=== PATIENT | male | born 1965 | race African-American/Black ===

== ENCOUNTER 2020-01-31 20:01 | Inpatient (IN) | payer BC, OTHER ==
[~2020-01-31 20:01] MED LIST: Iopamidol-370 76% 500 ML 1 ML ONE
--- NOTE | 2020-01-31 20:31 | RAD ---
Exam: Chest one view HISTORY:Dyspnea. COVID positive patient. Difficulty breathing. Comparison: None FINDINGS: Cardiac silhouette: Normal Aorta: Unremarkable Pulmonary vessels: Normal Costophrenic angles: Clear LUNGS: Scattered interstitial and alveolar opacities. Pneumothorax: None Osseous abnormalities: None IMPRESSION: Multi lobar COVID pneumonia.
[2020-01-31 21:07] LABS: #Lymphocytes 0.6 thou/uL (1.20-3.40); #Monocytes 0.6 thou/uL (0.11-0.59); #Neutrophils 5.9 thou/uL (1.40-6.50); %Basophils 0.3 % (0.0-1.0); %Eosinophils 0.5 % (0.0-10.0); %Lymphocytes 8.5 % (21.0-51.0); %Monocytes 7.8 % (0.0-10.0); %Neutrophils 82.9 % (42.0-75.0); Hemoglobin 14.4 g/dL (14.0-18.0); Mean Corpuscular HGB CONC 32.2 g/dL (32.0-36.0); Mean Corpuscular Hemoglobin 29.6 pg (27.0-31.0); Mean Corpuscular Volume 92.1 fL (78.0-98.0); Mean Platelet Volume 8.5 fL (7.4-10.4); Platelet Count 247 thou/uL (130-400); RBC Distribution Width 12.6 % (11.5-14.5); Red Blood Cell (RBC) Count 4.87 mill/uL (4.70-6.10); White Blood Cell (WBC) Count 7.1 thou/uL (4.8-10.8)
[2020-01-31] MEDS ORDERED: Acetaminophen 500 MG TAB ONE (21:17)
[2020-01-31] MEDS ORDERED: Dexamethasone 10 MG/ML VIAL ONE (21:17)
[2020-01-31 21:25] LABS: Chloride 103 mmol/L (98-107); Potassium 4.2 mmol/L (3.5-5.1); Sodium 138 mmol/L (136-145)
[2020-01-31 21:26] LABS: ALT (SGPT) 28 U/L (8-55); AST (SGOT) 38 U/L (5-34); Albumin 3.5 g/dL (3.5-5.0); Alkaline Phosphatase 68 U/L (40-110); Anion Gap 14 mmol/L (10-20); BUN (Urea Nitrogen) 17 mg/dL (8.4-25.7); Bilirubin, Total 0.5 mg/dL (0.2-1.2); CK (CPK) 458 U/L (30-200); Calc. Creatinine Clearance 0 mL/min (70-130); Calcium 7.9 mg/dL (7.8-10.44); Carbon Dioxide 25 mmol/L (22-29); Globulin 3.4 g/dL (2.4-3.5); Glucose 110 mg/dL (70-105); Protein, Total 6.9 g/dL (6.0-8.3)
--- NOTE | 2020-01-31 22:11 | CT ---
Exam: CT angiogram of the chest HISTORY: COVID pneumonia. Shortness of breath. Evaluate for pulmonary artery embolism. COMPARISON: None TECHNIQUE: CT angiogram of the chest is performed in the axial plane. Three-dimensional reformatted i mages are submitted for interpretation FINDINGS: Mediastinum: There are enlarged mediastinal lymph nodes. [facility] right paratracheal lymph node measures 1.5 x 1.8 cm HEART: Normal size. No significant pericardial fluid. Aorta: No aneurysm or dissection Upper solid abdominal viscera: No abnormality enhancement. Trachea and central bronchi: Patent Pleural spaces: No effusion Lung parenchyma: Multifocal peripheral groundglass opacities. Pneumothorax: None Osseous structures: No lytic or blastic lesions Pulmonary arteries: Adequate contrast opacification pulmonary arterial system to the level of segment al arteries. No filling defect to suggest pulmonary embolism IMPRESSION: 1. No evidence of pulmonary artery embolism to the level of the segmental arteries 2. Multifocal peripheral groundglass opacities. Distribution is consistent with patient's positive CO VID status post. There is evidence for multi lobar COVID pneumonia. 3. Probable reactive mediastinal lymphadenopathy.
[2020-01-31] MEDS ORDERED: cefTRIAXone\\ROCEPHIN 1 GM VIAL ONE (22:49)
[2020-01-31] MEDS ORDERED: Aspirin Chewable 81 MG TAB ONE (22:49)
[2020-01-31] MEDS ORDERED: Enoxaparin Sodium 80 MG/0.8 ML SYRINGE ONE (23:05)
[2020-02-01] MEDS ORDERED: Azithromycin 500 MG VIAL ONE ×2 (00:49→10:32)
[2020-02-01] MEDS ORDERED: PROVENTIL INHALER 6.7 G (200 INHALATIONS) INH PRN (06:57)
[2020-02-01] MEDS ORDERED: hydrALAZINE 20 MG/ML VIAL SLOW IVP PRN (08:08)
[2020-02-01] MEDS ORDERED: Labetalol HCl 100 MG/20 ML VIAL SLOW IVP PRN (08:08)
[2020-02-01] MEDS ORDERED: Dexamethasone 20 MG/5 ML VIAL SLOW IVP SCH (09:00)
--- NOTE | 2020-02-01 09:03 | PDOC.HHP ---
Hospitalist HPI - History of Present Illness History of Present Illness: ADMISSION DATE: 02/01/2020 TIME OF ASSESSMENT: 08 50 PRIMARY CARE PHYSICIAN: Pratik, city call CHIEF COMPLAINT: Shortness of breath HPI: Patient is a 54-year-old male past medical history significant for high blood pressure which he currently does not take medication for and a recent positive Covid test. Patient states that he went to have his blood pressure checked last Friday, 4 days ago, and asked them to do a Covid test although he was not feeling bad. He states it resulted positive and he does not know when he was exposed. He presents today for increasing shortness of breath and worsening cough. He denies chest pain, GI symptoms, swelling. When EMS arrived his O2 saturation was 90% on room air so they placed him on 4 L nasal cannula which brought him to 97%. Patient does endorse subjective fever at home. Upon arrival to the ER patient's temp was 100.9 orally. ED COURSE: Vital Signs: Blood pressure 157/127, pulse 79, respiratory rate 24, temp 98.8, O2 saturation 95% on 2 L In the ER the patient had a CT angio of his chest, chest x-ray, EKG, lab work, medication administration. He was given azithromycin 500 mg IV, Lovenox 1 mg/kg subcu, ceftriaxone 1 g IV, aspirin 324 mg p.o., Decadron 10 mg IV, 1 L normal saline. PAST MEDICAL HISTORY: High blood pressure PAST SURGICAL HISTORY: None SOCIAL HISTORY: Lives at home with his girlfriend. Denies alcohol or drug use. Has history of tobacco use but quit 33 years ago. FAMILY HISTORY: High blood pressure ALLERGIES: No known drug allergies CURRENT MEDICATIONS: No current home medications Hospitalist ROS - Review of Systems Constitutional: reports: fever, weakness Respiratory: reports: cough, shortness of breath, SOB with excertion All other systems reviewed; all pertinent +/- noted in HPI/Subj - Exam General Appearance: NAD, awake alert Eye: PERRL ENT: normocephalic atraumatic Neck: supple Heart: RRR, no murmur, no gallops, no rubs, normal peripheral pulses Respiratory: no wheezes, no rales, rhonchi (light throughout) Respiratory - other findings: diminished bases Gastrointestinal: soft, non-tender, non-distended, normal bowel sounds Extremities: no cyanosis, no edema Neurological: no focal deficits Psychiatric: normal affect, normal behavior, A&O x 3 Hospitalist Results - Labs Result Diagrams: 02/01/20 09:03 02/01/20 09:03 Lab results: WBC 7.1 thou/uL (4.8-10.8) 01/31/20 20:44 Hgb 14.4 g/dL (14.0-18.0) 01/31/20 20:44 Hct 44.8 % (42.0-52.0) 01/31/20 20:44 MCV 92.1 fL (78.0-98.0) 01/31/20 20:44 Plt Count 247 thou/uL (130-400) 01/31/20 20:44 Neutrophils % 82.9 % (42.0-75.0) H 01/31/20 20:44 Sodium 138 mmol/L (136-145) 01/31/20 20:44 Potassium 4.2 mmol/L (3.5-5.1) 01/31/20 20:44 Chloride 103 mmol/L (98-107) 01/31/20 20:44 Carbon Dioxide 25 mmol/L (22-29) 01/31/20 20:44 BUN 17 mg/dL (8.4-25.7) 01/31/20 20:44 Creatinine 1.62 mg/dL (0.7-1.3) H 01/31/20 20:44 Glucose 110 mg/dL (70-105) H 01/31/20 20:44 Calcium 7.9 mg/dL (7.8-10.44) 01/31/20 20:44 Total Bilirubin 0.5 mg/dL (0.2-1.2) 01/31/20 20:44 AST 38 U/L (5-34) H 01/31/20 20:44 ALT 28 U/L (8-55) 01/31/20 20:44 Alkaline Phosphatase 68 U/L (40-110) 01/31/20 20:44 Creatine Kinase 458 U/L (30-200) H 01/31/20 20:44 Troponin I 0.025 ng/mL (< 0.028) 01/31/20 20:44 B-Natriuretic Peptide 18.8 pg/mL (0-100) 01/31/20 20:44 Serum Total Protein 6.9 g/dL (6.0-8.3) 01/31/20 20:44 Albumin 3.5 g/dL (3.5-5.0) 01/31/20 20:44 Laboratory Tests 01/31/20 20:44 D-Dimer 1.53 H - EKG Interpretation EKG: Sinus rhythm 82 bpm - Radiology Interpretation CT scan - chest Status: report reviewed by me Additional Comment: FINDINGS: Mediastinum: There are enlarged mediastinal lymph nodes. 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 No significant pericardial fluid. Aorta: No aneurysm or dissection Upper solid abdominal viscera: No abnormality enhancement. Trachea and central bronchi: Patent Pleural spaces: No effusion Lung parenchyma: Multifocal peripheral groundglass opacities. Pneumothorax: None Osseous structures: No lytic or blastic lesions Pulmonary arteries: Adequate contrast opacification pulmonary arterial system to the level of segmental arteries. No filling defect to suggest pulmonary embolism IMPRESSION: 1. No evidence of pulmonary artery embolism to the level of the segmental arteries 2. Multifocal peripheral groundglass opacities. Distribution is consistent with patients positive COVID status post. There is evidence for multi lobar COVID pneumonia. 3. Probable reactive mediastinal lymphadenopathy. Chest x-ray Status: image reviewed by me, report reviewed by me Additional Comment: FINDINGS: Cardiac silhouette: Normal Aorta: Unremarkable Pulmonary vessels: Normal Costophrenic angles: Clear LUNGS: Scattered interstitial and alveolar opacities. Pneumothorax: None Osseous abnormalities: None IMPRESSION: Multi lobar COVID pneumonia Hospitalist H&P A/P - Plan Plan: COVID-19 pneumonia with hypoxia Continue IV antibiotics and steroids Lovenox 1 mg/kg Antipyretics and analgesics available for fever and body aches Continue O2 to maintain sats above 92%, continue close monitoring Gentle IV fluids Zinc and vitamin C ordered Breathing treatments as needed Antitussives available Hypertension Vital signs every 4 hour As needed antihypertensives available May start low-dose antihypertensive patient blood pressure remains elevated Elevated D-dimer CTA did not show PE Continue Lovenox 1 mg/kg Possibly elevated secondary to Covid, troponin unremarkable ALVARO Gentle rehydration Follow labs in a.m. VTE prophylaxis in place with Lovenox CODE STATUS: Full Surrogate decision-maker is his girlfriend, Pily
[2020-02-01 09:26] LABS: Hemoglobin 15.6 g/dL (14.0-18.0); Mean Corpuscular HGB CONC 32.6 g/dL (32.0-36.0); Mean Corpuscular Hemoglobin 30.3 pg (27.0-31.0); Mean Corpuscular Volume 92.8 fL (78.0-98.0); Mean Platelet Volume 8.3 fL (7.4-10.4); Platelet Count 283 thou/uL (130-400); RBC Distribution Width 12.7 % (11.5-14.5); Red Blood Cell (RBC) Count 5.15 mill/uL (4.70-6.10); White Blood Cell (WBC) Count 7.9 thou/uL (4.8-10.8)
[2020-02-01] MEDS ORDERED: Benzonatate 100 MG CAP ONE (09:27)
[2020-02-01] MEDS ORDERED: Acetaminophen 325 MG TAB ONE (09:27)
[2020-02-01] MEDS ORDERED: cefTRIAXone\\ROCEPHIN 1 GM VIAL ONE (09:27)
[2020-02-01] MEDS ORDERED: hydrALAZINE 20 MG/ML VIAL ONE (09:27)
[2020-02-01] MEDS ORDERED: Dexamethasone 10 MG/ML VIAL ONE (09:27)
[2020-02-01] MEDS ORDERED: Aspirin 325 MG TAB ONE (09:27)
[2020-02-01] MEDS ORDERED: Labetalol HCl 100 MG/20 ML VIAL ONE (09:29)
[2020-02-01 09:42] LABS: Anion Gap 15 mmol/L (10-20); BUN (Urea Nitrogen) 19 mg/dL (8.4-25.7); Calc. Creatinine Clearance 0 mL/min (70-130); Calcium 8.2 mg/dL (7.8-10.44); Carbon Dioxide 26 mmol/L (22-29); Chloride 105 mmol/L (98-107); Glucose 122 mg/dL (70-105); Potassium 5.1 mmol/L (3.5-5.1); Sodium 141 mmol/L (136-145)
[2020-02-01] MEDS: Sodium Chloride 0.9% 1,000 ML IV SCH ×2 (09:49→20:26)
[2020-02-01] MEDS: cefTRIAXone\\ROCEPHIN 1 GM in Sodium Chloride 0.9% 100 ML IVPB SCH (09:54)
[2020-02-01 09:55] LABS: Band 7 % (5-11); Lymphocytes 14 % (21-51); MDiff Complete? YES; Monocytes 1 % (0-10); Neutrophil 71 % (42-75); Platelet Morphology Comment Appears Adequate; RBC Morphology Normal; Reactive Lymphocytes 7 % (0-10)
[2020-02-01] MEDS: Zinc Sulfate 220 MG CAP PO SCH (09:56)
[2020-02-01] MEDS: Ascorbic Acid 500 mg Chewable Tablet PO SCH (09:56)
[2020-02-01] MEDS: Aspirin 325 MG TAB PO SCH (09:57)
[2020-02-01] MEDS: Acetaminophen 325 MG TAB PO PRN ×2 (09:57→17:18)
[2020-02-01] MEDS: Benzonatate 100 MG CAP PO PRN ×2 (09:58→21:50)
[2020-02-01] MEDS: Dexamethasone 4 mg/ml Vial SLOW IVP SCH (10:01)
[2020-02-01] MEDS ORDERED: Enoxaparin Sodium 100 MG/ML SYRINGE ONE (10:15)
[2020-02-01] MEDS ORDERED: Enoxaparin Sodium 80 MG/0.8 ML SYRINGE ONE (10:17)
[2020-02-01] MEDS: Azithromycin 500 MG in Sodium Chloride 0.9% 250 ML 250 ML IVPB SCH (10:38)
[2020-02-01] MEDS: Mometasone 100 MCG/Formoterol 5 MCG 120 PUFF INHALER INH SCH (19:30)
[2020-02-01] MEDS: Enoxaparin Sodium 80 MG/0.8 ML SYRINGE SC SCH (20:26)
[2020-02-02] MEDS: Acetaminophen 325 MG TAB PO PRN ×4 (00:05→20:38)
[2020-02-02] MEDS: Benzonatate 100 MG CAP PO PRN (04:47)
[2020-02-02 05:37] LABS: #Basophils 0.1 thou/uL (0.0-0.2); #Eosinphils 0.1 thou/uL (0.0-0.7); #Lymphocytes 1.4 thou/uL (1.20-3.40); #Monocytes 0.8 thou/uL (0.11-0.59); #Neutrophils 11.9 thou/uL (1.40-6.50); %Basophils 0.4 % (0.0-1.0); %Eosinophils 0.4 % (0.0-10.0); %Monocytes 5.6 % (0.0-10.0); %Neutrophils 83.7 % (42.0-75.0); Hemoglobin 13.8 g/dL (14.0-18.0); Mean Corpuscular HGB CONC 33.3 g/dL (32.0-36.0); Mean Corpuscular Hemoglobin 30.7 pg (27.0-31.0); Mean Corpuscular Volume 92.1 fL (78.0-98.0); Mean Platelet Volume 8.4 fL (7.4-10.4); Platelet Count 310 thou/uL (130-400); RBC Distribution Width 12.8 % (11.5-14.5); Red Blood Cell (RBC) Count 4.51 mill/uL (4.70-6.10); White Blood Cell (WBC) Count 14.3 thou/uL (4.8-10.8)
[2020-02-02 06:41] LABS: Anion Gap 13 mmol/L (10-20); BUN (Urea Nitrogen) 23 mg/dL (8.4-25.7); Calc. Creatinine Clearance 64 mL/min (70-130); Calcium 7.5 mg/dL (7.8-10.44); Carbon Dioxide 23 mmol/L (22-29); Chloride 107 mmol/L (98-107); Glucose 90 mg/dL (70-105); Potassium 4.4 mmol/L (3.5-5.1); Sodium 139 mmol/L (136-145)
[2020-02-02] MEDS: Mometasone 100 MCG/Formoterol 5 MCG 120 PUFF INHALER INH SCH ×2 (06:43→18:08)
[2020-02-02] MEDS: Ascorbic Acid 500 mg Chewable Tablet PO SCH (09:12)
[2020-02-02] MEDS: Zinc Sulfate 220 MG CAP PO SCH (09:12)
[2020-02-02] MEDS: Aspirin 325 MG TAB PO SCH (09:12)
[2020-02-02] MEDS: Azithromycin 500 MG in Sodium Chloride 0.9% 250 ML 250 ML IVPB SCH (09:13)
[2020-02-02] MEDS: Sodium Chloride 0.9% 1,000 ML IV SCH ×2 (09:13→20:40)
[2020-02-02] MEDS: Enoxaparin Sodium 80 MG/0.8 ML SYRINGE SC SCH (09:14)
[2020-02-02] MEDS: Dexamethasone 4 mg/ml Vial SLOW IVP SCH (09:16)
[2020-02-02] MEDS: cefTRIAXone\\ROCEPHIN 1 GM in Sodium Chloride 0.9% 100 ML IVPB SCH (11:03)
--- NOTE | 2020-02-02 15:11 | PDOC.HOSPP ---
- Subjective Encounter Date: 02/02/20 Encounter Time: 14:15 Subjective: Patient is seen for follow-up of COVID-19 today. He appears more tired in bed and has needed an increase in his oxygen support to 4 L. He states he had fevers throughout the night and has started to cough up blood tinged sputum. Patient also endorses diarrhea since he was diagnosed. Patient becoming winded just with conversation. - Objective Vital Signs & Weight: Vital Signs (12 hours) Temp Pulse Resp BP Pulse Ox 02/02/20 11:13 99.3 F 78 16 129/76 93 L 02/02/20 10:24 94 L 02/02/20 09:12 100.3 F H 02/02/20 08:44 100.3 F H 88 16 125/78 94 L 02/02/20 06:00 99.5 F 02/02/20 05:17 99.5 F 02/02/20 05:08 101.7 F H 88 18 151/98 H 92 L Weight Weight 180 lb 12.465 oz Result Diagrams: 02/02/20 05:08 02/02/20 05:08 Hospitalist ROS - Review of Systems Constitutional: reports: weakness Respiratory: reports: cough, hemoptysis All other systems reviewed; all pertinent +/- noted in HPI/Subj - Medication Medications: Active Medications Generic Name Dose Route Start Last Admin Trade Name Freq PRN Reason Stop Dose Admin Acetaminophen 650 mg 02/01/20 08:08 02/02/20 09:12 Acetaminophen 325 Mg Tab PO 650 mg Q4H PRN Administration Headache/Fever/Mild Pain (1-3) Ascorbic Acid 1,000 mg 02/01/20 09:00 02/02/20 09:12 Ascorbic Acid 500 Mg Chewable Tablet PO 1,000 mg DAILY SILVINO Administration Aspirin 325 mg 02/01/20 09:00 02/02/20 09:12 Aspirin 325 Mg Tab PO 325 mg DAILY SILVINO Administration Benzonatate 100 mg 02/01/20 08:08 02/02/20 04:47 Benzonatate 100 Mg Cap PO 100 mg Q6H PRN Administration Cough Dexamethasone 6 mg 02/01/20 09:00 02/02/20 09:16 Dexamethasone 4 Mg/Ml Vial SLOW IVP 6 mg DAILY SILVINO Administration Sodium Chloride 1,000 mls @ 75 mls/hr 02/01/20 08:15 02/02/20 09:13 Normal Saline 0.9% IV 1,000 mls .[id number] SILVINO Administration Azithromycin 500 mg/ Sodium 250 mls @ 250 mls/hr 02/01/20 10:00 02/02/20 09:13 Chloride IVPB 250 mls Q24HR SILVINO Administration Ceftriaxone Sodium 1 gm/ 100 mls @ 200 mls/hr 02/01/20 09:00 02/02/20 11:03 Sodium Chloride IVPB 100 mls Q24HR SILVINO Administration Mometasone Furoate/Formoterol Fumar 1 puff 02/01/20 18:30 02/02/20 06:43 Mometasone 100 Mcg/Formoterol 5 Mcg 120 Puff Inhaler INH 1 puff BID-RT SILVINO Administration Sodium Chloride 10 ml 02/01/20 09:00 02/02/20 09:13 Flush - Normal Saline 10 Ml Syringe IVF 10 ml Q12HR SILVINO Administration Zinc Sulfate 220 mg 02/01/20 09:00 02/02/20 09:12 Zinc Sulfate 220 Mg Cap PO 220 mg DAILY SILVINO Administration - Exam General Appearance: awake alert, ill appearing ENT: normocephalic atraumatic Neck: supple Heart: RRR, no murmur, no gallops, no rubs, normal peripheral pulses Respiratory: no ronchi, tachypneic Respiratory - other findings: SOB with talking Gastrointestinal: non-tender, normal bowel sounds, no palpable masses, distended Extremities: no edema Musculoskeletal: no muscle wasting Psychiatric: normal behavior, A&O x 3 Hosp A/P - Plan COVID-19 pneumonia with hypoxia Continue IV antibiotics and steroids, had elevation of white blood cellspossibly from steroid use Decrease Lovenox due to hemoptysis Antipyretics and analgesics available for fever and body aches Continue O2 to maintain sats above 92%, continue close monitoring Gentle IV fluids Zinc, vitamin D and vitamin C ordered Consider remdesivir Breathing treatments as needed Antitussives available Hypertension Vital signs every 4 hour As needed antihypertensives available May start low-dose antihypertensive if patient blood pressure remains elevated Elevated D-dimer CTA did not show PE Possibly elevated secondary to Covid, troponin unremarkable We will obtain CRP and ferritin levels to trend ALVARO Gentle rehydration Continue to follow labs
[2020-02-02] MEDS ORDERED: REMDESIVIR (EUA) 200 MG in Sodium Chloride 0.9% 250 ML 210 ML IV SCH (16:00)
[2020-02-02] MEDS: Guaifenesin DM 100-10/5 ML UDCUP PO PRN (20:39)
[2020-02-03] MEDS: Acetaminophen 325 MG TAB PO PRN ×2 (04:44→20:30)
[2020-02-03] MEDS: Guaifenesin DM 100-10/5 ML UDCUP PO PRN (05:16)
[2020-02-03] MEDS: Mometasone 100 MCG/Formoterol 5 MCG 120 PUFF INHALER INH SCH ×2 (05:33→19:20)
[2020-02-03 06:21] LABS: Anion Gap 14 mmol/L (10-20); BUN (Urea Nitrogen) 17 mg/dL (8.4-25.7); Calc. Creatinine Clearance 78 mL/min (70-130); Calcium 7.7 mg/dL (7.8-10.44); Carbon Dioxide 22 mmol/L (22-29); Chloride 107 mmol/L (98-107); Glucose 98 mg/dL (70-105); Potassium 4.2 mmol/L (3.5-5.1); Sodium 139 mmol/L (136-145)
[2020-02-03 06:34] LABS: Band 10 % (5-11); Hemoglobin 14.5 g/dL (14.0-18.0); Lymphocytes 10 % (21-51); MDiff Complete? YES; Mean Corpuscular HGB CONC 33.5 g/dL (32.0-36.0); Mean Corpuscular Hemoglobin 31.9 pg (27.0-31.0); Mean Corpuscular Volume 95.2 fL (78.0-98.0); Mean Platelet Volume 8.4 fL (7.4-10.4); Metamyelocyte 2 % (0-0); Monocytes 9 % (0-10); Myelocyte 1 % (0-0); Neutrophil 68 % (42-75); Platelet Count 341 thou/uL (130-400); Platelet Morphology Comment Appears Adequate; RBC Distribution Width 12.9 % (11.5-14.5); Red Blood Cell (RBC) Count 4.55 mill/uL (4.70-6.10)
[2020-02-03] MEDS: Ascorbic Acid 500 mg Chewable Tablet PO SCH (07:55)
[2020-02-03] MEDS: Zinc Sulfate 220 MG CAP PO SCH (07:56)
[2020-02-03] MEDS: Enoxaparin Sodium 40 MG/0.4 ML SYRINGE SC SCH (07:56)
[2020-02-03] MEDS: cefTRIAXone\\ROCEPHIN 1 GM in Sodium Chloride 0.9% 100 ML IVPB SCH (07:57)
[2020-02-03] MEDS: Aspirin 325 MG TAB PO SCH (07:57)
[2020-02-03] MEDS: Dexamethasone 4 mg/ml Vial SLOW IVP SCH (07:58)
[2020-02-03] MEDS ORDERED: Benzonatate 100 MG CAP PO PRN (08:10)
[2020-02-03 08:49] LABS: Lactic Acid 3.8 mmol/L (0.5-2.2)
[2020-02-03 08:54] LABS: CRP (Inflammatory) 13.48 mg/dL (= or < 0.5); Magnesium 2.8 mg/dL (1.6-2.6)
--- NOTE | 2020-02-03 08:57 | PDOC.HOSPP ---
- Subjective Encounter Date: 02/03/20 Encounter Time: 08:55 Subjective: Reports having issues with his breathing last night. He was laying on his side and felt like there was pressure on his lungs. His sats dropped. States he sat up and RN came in and bumped up his O2. He was afraid to lay back down and decided to sleep in the recliner. Continues with hemoptysis. States he has frequent coughing fits. Unable to take a deep breath due to exacerbation of coughing fits. No chest pain. Denies any lightheadedness. Currently he feels he is breathing well. Urine continues to be somewhat dark. Tolerating PO intake. No dysuria/hematuria. - Objective Vital Signs & Weight: Vital Signs (12 hours) Temp Pulse Resp BP Pulse Ox 02/03/20 04:00 98.6 F 86 18 151/87 H 98 02/02/20 23:17 98.3 F 80 20 141/92 H 95 02/02/20 21:00 99.1 F 76 20 130/82 94 L Weight Weight 180 lb 12.465 oz I&O: 02/02/20 02/03/20 02/04/20 06:59 06:59 06:59 Intake Total 4820 Balance 4820 Result Diagrams: 02/03/20 05:38 02/03/20 05:38 Hospitalist ROS - Review of Systems Constitutional: denies: fever, chills, sweats, weakness, malaise, other Respiratory: reports: cough, shortness of breath (episode last night, improved when upright and O2 bumped up.), hemoptysis Cardiovascular: denies: chest pain, palpitations, orthopnea, paroxysmal noc. dyspnea, edema, light headedness, other Gastrointestinal: denies: nausea, vomiting, abdominal pain, diarrhea, constipation, melena, hematochezia, other Genitourinary: denies: dysuria, frequency, incontinence, hematuria, retention, other Musculoskeletal: denies: neck pain, shoulder pain, arm pain, back pain, hand pain, leg pain, foot pain, other Skin: denies: rash, lesions, abdoul, bruising, other Neurological: denies: weakness, numbness, incoordination, change in speech, confusion, seizures, other - Medication Medications: Active Medications Generic Name Dose Route Start Last Admin Trade Name Freq PRN Reason Stop Dose Admin Acetaminophen 650 mg 02/01/20 08:08 02/03/20 04:44 Acetaminophen 325 Mg Tab PO 650 mg Q4H PRN Administration Headache/Fever/Mild Pain (1-3) Ascorbic Acid 1,000 mg 02/01/20 09:00 02/03/20 07:55 Ascorbic Acid 500 Mg Chewable Tablet PO 1,000 mg DAILY SILVINO Administration Aspirin 325 mg 02/01/20 09:00 02/03/20 07:57 Aspirin 325 Mg Tab PO 325 mg DAILY SILVINO Administration Benzonatate 100 mg 02/01/20 08:08 02/02/20 04:47 Benzonatate 100 Mg Cap PO 100 mg Q6H PRN Administration Cough Dexamethasone 6 mg 02/01/20 09:00 02/03/20 07:58 Dexamethasone 4 Mg/Ml Vial SLOW IVP 6 mg DAILY SILVINO Administration Enoxaparin Sodium 40 mg 02/03/20 09:00 02/03/20 07:56 Enoxaparin Sodium 40 Mg/0.4 Ml Syringe SC 40 mg 09 SILVINO Administration Guaifenesin/Dextromethorphan 15 ml 02/01/20 08:08 02/03/20 05:16 Guaifenesin Dm 100-10/5 Ml Udcup PO 15 ml Q4H PRN Administration Cough Azithromycin 500 mg/ Sodium 250 mls @ 250 mls/hr 02/01/20 10:00 02/02/20 09:13 Chloride IVPB 250 mls Q24HR SILVINO Administration Ceftriaxone Sodium 1 gm/ 100 mls @ 200 mls/hr 02/01/20 09:00 02/03/20 07:57 Sodium Chloride IVPB 100 mls Q24HR SILVINO Administration Mometasone Furoate/Formoterol Fumar 1 puff 02/01/20 18:30 02/03/20 05:33 Mometasone 100 Mcg/Formoterol 5 Mcg 120 Puff Inhaler INH 1 puff BID-RT SILVINO Administration Sodium Chloride 10 ml 02/01/20 09:00 02/03/20 07:57 Flush - Normal Saline 10 Ml Syringe IVF 10 ml Q12HR SILVINO Administration Zinc Sulfate 220 mg 02/01/20 09:00 02/03/20 07:56 Zinc Sulfate 220 Mg Cap PO 220 mg DAILY SILVINO Administration - Exam General Appearance: NAD, awake alert Eye: PERRL, anicteric sclera ENT: normocephalic atraumatic, no oropharyngeal lesions Neck: supple, no lymphadenopathy Heart: RRR, no murmur, no gallops, normal peripheral pulses Respiratory: CTAB, no wheezes, no rales, no ronchi, normal chest expansion, no tachypnea Gastrointestinal: soft, non-tender, non-distended, normal bowel sounds, no guarding, no rigidity Extremities: no edema Skin: normal turgor, no lesions, no rashes Neurological: cranial nerve grossly intact, normal sensation to touch, no focal deficits Musculoskeletal: normal tone, normal strength, no muscle wasting Psychiatric: normal affect, normal behavior, A&O x 3 Hosp A/P (1) Cough with hemoptysis Code(s): R04.2 - HEMOPTYSIS Status: Acute Plan: CTA done at admission, negative for PE. Likely due to irritation from constant cough. Will add Tessalon to help control cough (2) Pneumonia due to COVID-19 virus Code(s): U07.1 - COVID-19; J12.89 - OTHER VIRAL PNEUMONIA Status: Acute Plan: Continue antibiotics Continue IV Dexamethasone Check CRP, Ferritin, LDH and lactic acid as well as D-dimer Will check BNP as well Monitor O2 sats Zinc, vitamin D and vitamin C ordered (3) ALVARO (acute kidney injury) Code(s): N17.9 - ACUTE KIDNEY FAILURE, UNSPECIFIED Status: Acute Plan: Continue IV fluids, rate reduced to 50 mLs/hr PO fluid intake encouraged Repeat BMP to assess renal function (4) Hypertension Code(s): I10 - ESSENTIAL (PRIMARY) HYPERTENSION Status: Chronic Plan: Continue anti-hypertensives Monitor BP.
[2020-02-03] MEDS: Azithromycin 500 MG in Sodium Chloride 0.9% 250 ML 250 ML IVPB SCH ×2 (10:57→12:01)
[2020-02-03] MEDS: Cholecalciferol (Vitamin D3) 400 UNITS TAB PO SCH (10:57)
[2020-02-03] MEDS: Sodium Chloride 0.9% 1,000 ML IV SCH ×2 (12:01→20:23)
--- NOTE | 2020-02-03 13:48 | PQF ---
CLINICAL DOCUMENTATION CLARIFICATION FORM: Dear Dr. Heri Chaney Date: 02/03/2020 Please exercise your independent, professional judgment in responding to the clarification form. Clinical indicators are provided on the bottom of this form for your review. Please check appropriate box(es): [ ] Acute Respiratory Failure: [ ] with Hypoxia [ ] with Hypercapnia [ ] Acute On Chronic Respiratory Failure: [ ] with Hypoxia [ ] with Hypercapnia [ X ] Acute Respiratory Failure due to: (etiology) COVID PNEUMONIA [ ] Chronic Respiratory Failure only [ ] with Hypoxia [ ] with Hypercapnia [ ] Hypoxia [ ] Other diagnosis [ ] Unable to determine In addition, please specify: Present on Admission (POA): [ ] Yes [ ] No [ ] Unable to determine For continuity of documentation, please document condition throughout progress notes and discharge summary. Thank You. To be completed by CDI/Coding staff for physician review: CLINICAL INDICATORS - SIGNS / SYMPTOMS / LABS / RESULTS AND LOCATION IN MR [place] positive Friday, Pt c/o SOB, 90% RA > 95% 4L/NC, RESP 28.. Final DX: Johan Justice, Hypoxia (ED report) 01/31 * Presents for increasing SOB and worsening cough, when EMS arrived his O2 was 90% RA so they placed him on 4l/NC ([place]/ H&P) 01/31 * Reports having issues with his breathing last night. He was laying on his side and felt like there was pressure on his lungs. His sats dropped. States he sat up and RN came in and bumped up his O2. ([place]/H&P) 02/02 RISK FACTORS / RESULTS AND LOCATION IN MR Johan Justice Pneumonia, hypoxia ( [place]/ H&P) 02/02 TREATMENTS / RESULTS AND LOCATION IN MR Supplemental oxygen (01/31 present) Acute Respiratory Failure: ABG pH < 7.35 or > 7.45; Decreased oxygen saturation (<90% room air or < 95% on oxygen); PCO2 > 50 mm Hg; PO2 < 60 mm Hg; Labored or rapid respirations ARDS: Dx Criteria [[place] ARDS]: Respiratory symptoms within one week of a known clinical insult (e.g. shock, infection, surgery, trauma) Bilateral opacities in CXR/Chest CT not due to CHF or fluid THANK YOU! CDS Signature: Adamaris Pelayo RN Phone #: [phone] Date: 02/03/2020 RAMÓN
[2020-02-03] MEDS: Benzonatate 100 MG CAP PO PRN (14:14)
[2020-02-03] MEDS: REMDESIVIR (EUA) 100 MG in Sodium Chloride 0.9% 250 ML 230 ML IV SCH (16:49)
--- NOTE | 2020-02-03 17:03 | RAD ---
Chest AP view INDICATION: History of pneumonia and hypoxia COMPARISON: Prior exam dated January 31, 2020 FINDINGS: Lungs: There is worsening bilateral pneumonia particularly within the left upper lobe and right lowe r lobe. Patchy opacities remain throughout the right perihilar region Cardiac silhouette: Mild cardiomegaly is stable Pulmonary vasculature: Normal Pleural spaces: No pleural effusion or pneumothorax is demonstrated. Upper abdomen: No abnormality seen. Osseous structures: No acute osseous abnormality. Additional findings: None. IMPRESSION: Worsening bilateral pneumonia
[2020-02-03 17:45] LABS: Anion Gap 16 mmol/L (10-20); CK (CPK) 399 U/L (30-200); Carbon Dioxide 23 mmol/L (22-29); Chloride 106 mmol/L (98-107); Potassium 4.3 mmol/L (3.5-5.1); Sodium 141 mmol/L (136-145)
[2020-02-03 20:23] LABS: Lactic Acid 1.8 mmol/L (0.5-2.2)
[2020-02-04] MEDS: Mometasone 100 MCG/Formoterol 5 MCG 120 PUFF INHALER INH SCH ×2 (06:29→20:38)
[2020-02-04 06:31] LABS: Lactic Acid 1.7 mmol/L (0.5-2.2)
[2020-02-04 06:34] LABS: Anion Gap 14 mmol/L (10-20); BUN (Urea Nitrogen) 17 mg/dL (8.4-25.7); Calc. Creatinine Clearance 86 mL/min (70-130); Calcium 7.5 mg/dL (7.8-10.44); Carbon Dioxide 22 mmol/L (22-29); Chloride 109 mmol/L (98-107); Glucose 87 mg/dL (70-105); Potassium 3.9 mmol/L (3.5-5.1); Sodium 141 mmol/L (136-145)
[2020-02-04 06:37] LABS: ALT (SGPT) 34 U/L (8-55); AST (SGOT) 35 U/L (5-34); Albumin 2.9 g/dL (3.5-5.0); Alkaline Phosphatase 73 U/L (40-110); Bilirubin, Direct 0.2 mg/dL (0.1-0.3); Bilirubin, Total 0.4 mg/dL (0.2-1.2); Protein, Total 6.2 g/dL (6.0-8.3)
[2020-02-04 06:43] LABS: Hemoglobin 13.9 g/dL (14.0-18.0); Mean Corpuscular HGB CONC 32.8 g/dL (32.0-36.0); Mean Corpuscular Hemoglobin 30.5 pg (27.0-31.0); Mean Platelet Volume 7.9 fL (7.4-10.4); Platelet Count 407 thou/uL (130-400); Red Blood Cell (RBC) Count 4.55 mill/uL (4.70-6.10)
[2020-02-04] MEDS: Aspirin 325 MG TAB PO SCH (07:55)
[2020-02-04] MEDS: Ascorbic Acid 500 mg Chewable Tablet PO SCH (07:55)
[2020-02-04] MEDS: Enoxaparin Sodium 40 MG/0.4 ML SYRINGE SC SCH ×2 (07:56→20:39)
[2020-02-04] MEDS: Dexamethasone 4 mg/ml Vial SLOW IVP SCH (07:56)
[2020-02-04] MEDS: Zinc Sulfate 220 MG CAP PO SCH (07:56)
[2020-02-04] MEDS: cefTRIAXone\\ROCEPHIN 1 GM in Sodium Chloride 0.9% 100 ML IVPB SCH (07:57)
[2020-02-04 10:06] LABS: Band 9 % (5-11); Lymphocytes 8 % (21-51); MDiff Complete? YES; Metamyelocyte 5 % (0-0); Monocytes 5 % (0-10); Neutrophil 67 % (42-75); Platelet Morphology Comment Appears Increased; Polychromasia SLIGHT = 2-3 cells (100X) (0-2/hpf); Reactive Lymphocytes 6 % (0-10)
[2020-02-04] MEDS: Azithromycin 500 MG in Sodium Chloride 0.9% 250 ML 250 ML IVPB SCH (10:52)
[2020-02-04] MEDS: Cholecalciferol (Vitamin D3) 400 UNITS TAB PO SCH (12:16)
--- NOTE | 2020-02-04 16:26 | PDOC.HOSPP ---
- Subjective Encounter Date: 02/04/20 Encounter Time: 12:30 Subjective: pt up in bed no complains - Objective Vital Signs & Weight: Vital Signs (12 hours) Temp Pulse Resp BP Pulse Ox 02/04/20 12:00 98.8 F 71 25 H 158/101 H 93 L 02/04/20 08:00 98.3 F 68 24 H 159/99 H 91 L 02/04/20 05:30 98.2 F 76 18 160/99 H 93 L Weight Weight 180 lb 12.465 oz I&O: 02/03/20 02/04/20 02/05/20 06:59 06:59 06:59 Intake Total 4820 1200 Output Total 950 Balance 4820 250 Result Diagrams: 02/04/20 05:56 02/04/20 05:56 Hospitalist ROS - Review of Systems Cardiovascular: denies: chest pain, palpitations, orthopnea, paroxysmal noc. dyspnea, edema, light headedness, other Gastrointestinal: denies: nausea, vomiting, abdominal pain, diarrhea, constipation, melena, hematochezia, other Genitourinary: denies: dysuria, frequency, incontinence, hematuria, retention, other - Medication Medications: Active Medications Generic Name Dose Route Start Last Admin Trade Name Freq PRN Reason Stop Dose Admin Acetaminophen 650 mg 02/01/20 08:08 02/03/20 20:30 Acetaminophen 325 Mg Tab PO 650 mg Q4H PRN Administration Headache/Fever/Mild Pain (1-3) Ascorbic Acid 1,000 mg 02/01/20 09:00 02/04/20 07:55 Ascorbic Acid 500 Mg Chewable Tablet PO 1,000 mg DAILY SILVINO Administration Benzonatate 100 mg 02/01/20 08:08 02/03/20 14:14 Benzonatate 100 Mg Cap PO 100 mg Q6H PRN Administration Cough Cholecalciferol 400 units 02/03/20 09:00 02/04/20 12:16 Cholecalciferol (Vitamin D3) 400 Units Tab PO 400 units DAILY SILVINO Administration Dexamethasone 6 mg 02/01/20 09:00 02/04/20 07:56 Dexamethasone 4 Mg/Ml Vial SLOW IVP 6 mg DAILY SILVINO Administration Guaifenesin/Dextromethorphan 15 ml 02/01/20 08:08 02/03/20 05:16 Guaifenesin Dm 100-10/5 Ml Udcup PO 15 ml Q4H PRN Administration Cough Azithromycin 500 mg/ Sodium 250 mls @ 250 mls/hr 02/01/20 10:00 02/04/20 10:52 Chloride IVPB 250 mls Q24HR SILVINO Administration Ceftriaxone Sodium 1 gm/ 100 mls @ 200 mls/hr 02/01/20 09:00 02/04/20 07:57 Sodium Chloride IVPB 100 mls Q24HR SILVINO Administration Remdesivir 100 mg/ Sodium 250 mls @ 250 mls/hr 02/03/20 16:00 02/03/20 16:49 Chloride IV 02/06/20 16:59 250 mls 1600 SILVINO Administration Sodium Chloride 1,000 mls @ 50 mls/hr 02/03/20 08:08 02/03/20 20:23 Normal Saline 0.9% IV 1,000 mls .Q20H SILVINO Administration Mometasone Furoate/Formoterol Fumar 1 puff 02/01/20 18:30 02/04/20 06:29 Mometasone 100 Mcg/Formoterol 5 Mcg 120 Puff Inhaler INH 1 puff BID-RT SILVINO Administration Sodium Chloride 10 ml 02/01/20 09:00 02/04/20 12:16 Flush - Normal Saline 10 Ml Syringe IVF Not Given Q12HR SILVINO Zinc Sulfate 220 mg 02/01/20 09:00 02/04/20 07:56 Zinc Sulfate 220 Mg Cap PO 220 mg DAILY SILVINO Administration - Exam Neck: negative: supple, symmetric, no JVD, no thyromegaly, no lymphadenopathy, no carotid bruit, JVD Heart: negative: RRR, no murmur, no gallops, no rubs, normal peripheral pulses, irregular, diminshed peripheral pulses, murmur present, II/IV, III/IV Respiratory: negative: CTAB, no wheezes, no rales, no ronchi, normal chest expansion, no tachypnea, normal percussion, rales, rhonchi, tachypneic, wheezes Gastrointestinal: negative: soft, non-tender, non-distended, normal bowel sounds, no palpable masses, no hepatomegaly, no splenomegaly, no bruit, no guarding, no rigidity, tender to palpation, distended, diminished bowl sounds, voluntary guarding Hosp A/P (1) Acute respiratory failure with hypoxia Code(s): J96.01 - ACUTE RESPIRATORY FAILURE WITH HYPOXIA Status: Acute (2) ALVARO (acute kidney injury) Code(s): N17.9 - ACUTE KIDNEY FAILURE, UNSPECIFIED Status: Acute (3) Pneumonia due to COVID-19 virus Code(s): U07.1 - COVID-19; J12.89 - OTHER VIRAL PNEUMONIA Status: Acute (4) Hypertension Code(s): I10 - ESSENTIAL (PRIMARY) HYPERTENSION Status: Chronic - Plan will start pt on norvasc given his elevated bp. Remdesivir started end date 02/05. We will continue current treatment. Patient continues to have blood tinged sputum. We will add Robitussin for cough in addition to Tessalon Perles. Patient on steroids and DVT prophylaxis. He is also on steroid inhaler and albuterol.
[2020-02-04] MEDS ORDERED: Amlodipine 10 MG TAB PO SCH (16:30)
[2020-02-04] MEDS ORDERED: guaiFENesin 100 MG/5 ML UDCUP PO PRN (16:31)
[2020-02-04] MEDS: REMDESIVIR (EUA) 100 MG in Sodium Chloride 0.9% 250 ML 230 ML IV SCH (17:06)
[2020-02-04] MEDS ORDERED: guaiFENesin ER 600 MG TAB PO SCH (17:45)
[2020-02-05] MEDS: Acetaminophen 325 MG TAB PO PRN ×2 (05:12→16:48)
[2020-02-05] MEDS: Mometasone 100 MCG/Formoterol 5 MCG 120 PUFF INHALER INH SCH ×2 (06:22→18:37)
[2020-02-05 06:32] LABS: ALT (SGPT) 35 U/L (8-55); AST (SGOT) 29 U/L (5-34); Alkaline Phosphatase 66 U/L (40-110); Bilirubin, Direct 0.3 mg/dL (0.1-0.3); Bilirubin, Total 0.5 mg/dL (0.2-1.2); Protein, Total 6.3 g/dL (6.0-8.3)
[2020-02-05] MEDS: Ascorbic Acid 500 mg Chewable Tablet PO SCH (08:10)
[2020-02-05] MEDS: cefTRIAXone\\ROCEPHIN 1 GM in Sodium Chloride 0.9% 100 ML IVPB SCH (08:11)
[2020-02-05] MEDS: Dexamethasone 4 mg/ml Vial SLOW IVP SCH (08:11)
[2020-02-05] MEDS: guaiFENesin ER 600 MG TAB PO SCH ×2 (08:11→21:04)
[2020-02-05] MEDS: Amlodipine 10 MG TAB PO SCH (08:11)
[2020-02-05] MEDS: Cholecalciferol (Vitamin D3) 400 UNITS TAB PO SCH (08:11)
[2020-02-05] MEDS: Zinc Sulfate 220 MG CAP PO SCH (08:11)
[2020-02-05] MEDS: Enoxaparin Sodium 40 MG/0.4 ML SYRINGE SC SCH ×2 (08:12→21:04)
[2020-02-05] MEDS: Azithromycin 500 MG in Sodium Chloride 0.9% 250 ML 250 ML IVPB SCH (09:38)
--- NOTE | 2020-02-05 16:12 | EKG ---
Test Reason : DYSPNEA Blood Pressure : / mmHG Vent. Rate : 082 BPM Atrial Rate : 082 BPM P-R Int : 114 ms QRS Dur : 076 ms QT Int : 378 ms P-R-T Axes : 047 -26 045 degrees QTc Int : 441 ms Normal sinus rhythm Possible Left atrial enlargement Possible Inferior infarct , age undetermined Abnormal ECG Confirmed by RANDA DIOP, ALYSON ([id number]), editor city JOLEEN ANSARI ([id number]) on 02/05/2020 4:12:32 PM Referred By: Confirmed By:ALYSON TOLENTINO MD
--- NOTE | 2020-02-05 17:04 | PDOC.HOSPP ---
- Subjective Subjective: Patient was seen examined at bedside. He is currently is on 3 L via nasal cannula. He had no fever. Patient currently is on the maximum therapy for Covid. Patient stated he is feeling better, his CRP is trending down. - Objective Vital Signs & Weight: Vital Signs (12 hours) Temp Pulse Resp BP BP Pulse Ox 02/05/20 16:00 98.3 F 71 18 134/77 100 02/05/20 12:00 98.3 F 83 20 136/90 96 02/05/20 08:11 69 159/94 H 02/05/20 08:00 98.5 F 69 18 159/94 H 92 L Weight Weight 180 lb 12.465 oz I&O: 02/04/20 02/05/20 02/06/20 06:59 06:59 06:59 Intake Total 1200 600 Output Total 950 Balance 250 600 Result Diagrams: 02/04/20 05:56 02/04/20 05:56 Radiology Reviewed by me: Yes EKG Reviewed by me: Yes Hospitalist ROS - Medication Medications: Active Medications Generic Name Dose Route Start Last Admin Trade Name Freq PRN Reason Stop Dose Admin Acetaminophen 650 mg 02/01/20 08:08 02/05/20 16:48 Acetaminophen 325 Mg Tab PO 650 mg Q4H PRN Administration Headache/Fever/Mild Pain (1-3) Amlodipine Besylate 10 mg 02/05/20 09:00 02/05/20 08:11 Amlodipine 10 Mg Tab PO 10 mg DAILY SILVINO Administration Ascorbic Acid 1,000 mg 02/01/20 09:00 02/05/20 08:10 Ascorbic Acid 500 Mg Chewable Tablet PO 1,000 mg DAILY SILVINO Administration Benzonatate 100 mg 02/01/20 08:08 02/03/20 14:14 Benzonatate 100 Mg Cap PO 100 mg Q6H PRN Administration Cough Cholecalciferol 400 units 02/03/20 09:00 02/05/20 08:11 Cholecalciferol (Vitamin D3) 400 Units Tab PO 400 units DAILY SILVINO Administration Dexamethasone 6 mg 02/01/20 09:00 02/05/20 08:11 Dexamethasone 4 Mg/Ml Vial SLOW IVP 6 mg DAILY SILVINO Administration Enoxaparin Sodium 40 mg 02/04/20 21:00 02/05/20 08:12 Enoxaparin Sodium 40 Mg/0.4 Ml Syringe SC 40 mg BID SILVINO Administration Guaifenesin 600 mg 02/05/20 09:00 02/05/20 08:11 Guaifenesin Er 600 Mg Tab PO 600 mg Q12HR SILVINO Administration Guaifenesin/Dextromethorphan 15 ml 02/01/20 08:08 02/03/20 05:16 Guaifenesin Dm 100-10/5 Ml Udcup PO 15 ml Q4H PRN Administration Cough Azithromycin 500 mg/ Sodium 250 mls @ 250 mls/hr 02/01/20 10:00 02/05/20 09:38 Chloride IVPB 250 mls Q24HR SILVINO Administration Ceftriaxone Sodium 1 gm/ 100 mls @ 200 mls/hr 02/01/20 09:00 02/05/20 08:11 Sodium Chloride IVPB 100 mls Q24HR SILVINO Administration Remdesivir 100 mg/ Sodium 250 mls @ 250 mls/hr 02/03/20 16:00 02/04/20 17:06 Chloride IV 02/06/20 16:59 250 mls 1600 SILVINO Administration Mometasone Furoate/Formoterol Fumar 1 puff 02/01/20 18:30 02/05/20 06:22 Mometasone 100 Mcg/Formoterol 5 Mcg 120 Puff Inhaler INH 1 puff BID-RT SILVINO Administration Sodium Chloride 10 ml 02/01/20 09:00 02/05/20 08:12 Flush - Normal Saline 10 Ml Syringe IVF 10 ml Q12HR SILVINO Administration Zinc Sulfate 220 mg 02/01/20 09:00 02/05/20 08:11 Zinc Sulfate 220 Mg Cap PO 220 mg DAILY SILVINO Administration - Exam General Appearance: NAD Eye: PERRL ENT: normocephalic atraumatic Neck: supple Heart: RRR, no murmur Respiratory: CTAB Gastrointestinal: soft, non-tender Extremities: no cyanosis Skin: normal turgor Neurological: cranial nerve grossly intact Musculoskeletal: normal tone Psychiatric: normal affect, normal behavior, A&O x 3 Hosp A/P - Plan Patient is a pleasant 54 years old -[place] gentleman who has significant past medical history of hypertension, not on medication, admitted for Covid pneumonia Acute hypoxic respiratory failure secondary to COVID-19 pneumonia --Continue to wean O2 as tolerated, patient is on maximum therapy with remdesivir, Decadron --empiric abx COVID-19 PNA --mgt as above Essential hypertension --Patient was started on Norvasc for blood pressure control, he was not on home medication ALVARO --resolved.
[2020-02-05] MEDS: REMDESIVIR (EUA) 100 MG in Sodium Chloride 0.9% 250 ML 230 ML IV SCH (17:10)
[2020-02-06] MEDS: Acetaminophen 325 MG TAB PO PRN ×2 (04:12→18:34)
[2020-02-06 05:55] LABS: ALT (SGPT) 48 U/L (8-55); AST (SGOT) 35 U/L (5-34); Alkaline Phosphatase 64 U/L (40-110); Bilirubin, Direct 0.2 mg/dL (0.1-0.3); Bilirubin, Total 0.5 mg/dL (0.2-1.2); Protein, Total 6.5 g/dL (6.0-8.3)
[2020-02-06] MEDS: Mometasone 100 MCG/Formoterol 5 MCG 120 PUFF INHALER INH SCH ×2 (06:07→18:27)
[2020-02-06] MEDS: guaiFENesin ER 600 MG TAB PO SCH ×2 (08:25→20:16)
[2020-02-06] MEDS: Dexamethasone 4 mg/ml Vial SLOW IVP SCH (08:25)
[2020-02-06] MEDS: Zinc Sulfate 220 MG CAP PO SCH (08:25)
[2020-02-06] MEDS: Ascorbic Acid 500 mg Chewable Tablet PO SCH (08:25)
[2020-02-06] MEDS: Cholecalciferol (Vitamin D3) 400 UNITS TAB PO SCH (08:25)
[2020-02-06] MEDS: cefTRIAXone\\ROCEPHIN 1 GM in Sodium Chloride 0.9% 100 ML IVPB SCH (08:25)
[2020-02-06] MEDS: Amlodipine 10 MG TAB PO SCH (08:25)
[2020-02-06] MEDS: Enoxaparin Sodium 40 MG/0.4 ML SYRINGE SC SCH ×2 (08:26→20:16)
[2020-02-06] MEDS: Azithromycin 500 MG in Sodium Chloride 0.9% 250 ML 250 ML IVPB SCH (09:54)
[2020-02-06] MEDS: REMDESIVIR (EUA) 100 MG in Sodium Chloride 0.9% 250 ML 230 ML IV SCH (16:05)
--- NOTE | 2020-02-06 16:27 | PDOC.HOSPP ---
- Subjective Subjective: Patient was seen examined at bedside. He has weaned down to 2 L today. He is scheduled to complete his remdesivir course later this evening. Patient stated that he is feeling much better. He had no fever. - Objective Vital Signs & Weight: Vital Signs (12 hours) Temp Pulse Resp BP BP Pulse Ox 02/06/20 11:58 98.8 F 87 20 135/90 99 02/06/20 08:25 74 149/93 H 02/06/20 08:00 98.2 F 73 20 149/93 H 99 02/06/20 05:24 100 Weight Weight 180 lb 12.465 oz I&O: 02/05/20 02/06/20 02/07/20 06:59 06:59 06:59 Intake Total 600 1800 Balance 600 1800 Result Diagrams: 02/04/20 05:56 02/04/20 05:56 Radiology Reviewed by me: Yes EKG Reviewed by me: Yes Hospitalist ROS - Medication Medications: Active Medications Generic Name Dose Route Start Last Admin Trade Name Freq PRN Reason Stop Dose Admin Acetaminophen 650 mg 02/01/20 08:08 02/06/20 04:12 Acetaminophen 325 Mg Tab PO 650 mg Q4H PRN Administration Headache/Fever/Mild Pain (1-3) Amlodipine Besylate 10 mg 02/05/20 09:00 02/06/20 08:25 Amlodipine 10 Mg Tab PO 10 mg DAILY SILVINO Administration Ascorbic Acid 1,000 mg 02/01/20 09:00 02/06/20 08:25 Ascorbic Acid 500 Mg Chewable Tablet PO 1,000 mg DAILY SILVINO Administration Benzonatate 100 mg 02/01/20 08:08 02/03/20 14:14 Benzonatate 100 Mg Cap PO 100 mg Q6H PRN Administration Cough Cholecalciferol 400 units 02/03/20 09:00 02/06/20 08:25 Cholecalciferol (Vitamin D3) 400 Units Tab PO 400 units DAILY SILVINO Administration Dexamethasone 6 mg 02/01/20 09:00 02/06/20 08:25 Dexamethasone 4 Mg/Ml Vial SLOW IVP 6 mg DAILY SILVINO Administration Enoxaparin Sodium 40 mg 02/04/20 21:00 02/06/20 08:26 Enoxaparin Sodium 40 Mg/0.4 Ml Syringe SC 40 mg BID SILVINO Administration Guaifenesin 600 mg 02/05/20 09:00 02/06/20 08:25 Guaifenesin Er 600 Mg Tab PO 600 mg Q12HR SILVINO Administration Guaifenesin/Dextromethorphan 15 ml 02/01/20 08:08 02/03/20 05:16 Guaifenesin Dm 100-10/5 Ml Udcup PO 15 ml Q4H PRN Administration Cough Azithromycin 500 mg/ Sodium 250 mls @ 250 mls/hr 02/01/20 10:00 02/06/20 09:54 Chloride IVPB 250 mls Q24HR SILVINO Administration Ceftriaxone Sodium 1 gm/ 100 mls @ 200 mls/hr 02/01/20 09:00 02/06/20 08:25 Sodium Chloride IVPB 100 mls Q24HR SILVINO Administration Remdesivir 100 mg/ Sodium 250 mls @ 250 mls/hr 02/03/20 16:00 02/06/20 16:05 Chloride IV 02/06/20 16:59 250 mls 1600 SILVINO Administration Mometasone Furoate/Formoterol Fumar 1 puff 02/01/20 18:30 02/06/20 06:07 Mometasone 100 Mcg/Formoterol 5 Mcg 120 Puff Inhaler INH 1 puff BID-RT SILVINO Administration Sodium Chloride 10 ml 02/01/20 09:00 02/06/20 08:27 Flush - Normal Saline 10 Ml Syringe IVF 10 ml Q12HR SILVINO Administration Zinc Sulfate 220 mg 02/01/20 09:00 02/06/20 08:25 Zinc Sulfate 220 Mg Cap PO 220 mg DAILY SILVINO Administration - Exam General Appearance: NAD Eye: PERRL ENT: normocephalic atraumatic Neck: supple Heart: RRR Respiratory: CTAB, no wheezes Gastrointestinal: soft Extremities: no cyanosis, no clubbing Skin: normal turgor Neurological: cranial nerve grossly intact Musculoskeletal: normal tone, normal strength Hosp A/P - Plan Patient is a pleasant 54 years old -[place] gentleman who has signific ant past medical history of hypertension, not on medication, admitted for Covid pneumonia Acute hypoxic respiratory failure secondary to COVID-19 pneumonia --Continue to wean O2 as tolerated, patient is on maximum therapy with Remdesivir, Decadron --will d/c IV Abx. Pt scheduled to have last dose of Remdesivir tonight COVID-19 PNA --mgt as above Essential hypertension --Patient was started on Norvasc for blood pressure control, he was not on home medication ALVARO --resolved.
[2020-02-07] MEDS: Mometasone 100 MCG/Formoterol 5 MCG 120 PUFF INHALER INH SCH (05:43)
[2020-02-07 06:22] LABS: Anion Gap 14 mmol/L (10-20); BUN (Urea Nitrogen) 18 mg/dL (8.4-25.7); CRP (Inflammatory) 3.13 mg/dL (= or < 0.5); Calc. Creatinine Clearance 81 mL/min (70-130); Carbon Dioxide 24 mmol/L (22-29); Chloride 105 mmol/L (98-107); Glucose 81 mg/dL (70-105); Potassium 3.5 mmol/L (3.5-5.1); Sodium 139 mmol/L (136-145)
[2020-02-07 06:33] LABS: Hemoglobin 13.8 g/dL (14.0-18.0); Mean Corpuscular HGB CONC 33.2 g/dL (32.0-36.0); Mean Corpuscular Hemoglobin 30.6 pg (27.0-31.0); Mean Corpuscular Volume 92.2 fL (78.0-98.0); Mean Platelet Volume 7.3 fL (7.4-10.4); Platelet Count 614 thou/uL (130-400); RBC Distribution Width 12.8 % (11.5-14.5); Red Blood Cell (RBC) Count 4.53 mill/uL (4.70-6.10); White Blood Cell (WBC) Count 17.8 thou/uL (4.8-10.8)
[2020-02-07 06:37] LABS: Band 4 % (5-11); Eosinophils 2 % (0-10); Lymphocytes 16 % (21-51); MDiff Complete? YES; Metamyelocyte 1 % (0-0); Monocytes 6 % (0-10); Myelocyte 6 % (0-0); Neutrophil 63 % (42-75); Platelet Morphology Comment Appears Increased; Reactive Lymphocytes 2 % (0-10)
[2020-02-07] MEDS: Amlodipine 10 MG TAB PO SCH (08:03)
[2020-02-07] MEDS: guaiFENesin ER 600 MG TAB PO SCH (08:03)
[2020-02-07] MEDS: Zinc Sulfate 220 MG CAP PO SCH (08:03)
[2020-02-07] MEDS: Ascorbic Acid 500 mg Chewable Tablet PO SCH (08:03)
[2020-02-07] MEDS: Cholecalciferol (Vitamin D3) 400 UNITS TAB PO SCH (08:03)
[2020-02-07] MEDS: Enoxaparin Sodium 40 MG/0.4 ML SYRINGE SC SCH (08:04)
[2020-02-07] MEDS: Dexamethasone 4 mg/ml Vial SLOW IVP SCH (08:04)
[2020-02-07 08:16] VITALS: TEMP 98.2
[2020-02-07 12:09] VITALS: BP 136/88
--- NOTE | 2020-02-07 13:22 | PDOC.DS.DS ---
Provider - Provider Date of Admission: 01/31/20 23:56 Date of Discharge: 02/07/20 Admitting Provider: Gary Crowe MD Primary Care Physician: NO PCP PROVIDER Course - Hospital Course Hospital Course: Discharge diagnosis: 1. Acute hypoxic respiratory failure 2. Acute kidney injury 3. COVID-19 pneumonia 4. Hypertension Hospital course: Patient is a pleasant 49-year-old gentleman who was admitted to the hospital on February 01, 2020 for acute hypoxic respiratory failure secondary to COVID-19 pneumonia. He was treated with dexamethasone, remdesivir, vitamin C, vitamin D and zinc. He improved clinically. Acute kidney injury resolved. He was started on amlodipine for elevated blood pressures. He did not qualify for home oxygen. He is being discharged home in stable condition. Many thanks for allowing me to participate in your patient's care. Please feel free to contact me with any questions or concerns. Discharge destination: Home Total amount of time spent coordinating this discharge: 33 minutes Resuscitation Status: 02/01/20 08:08 Resuscitation Status Routine Co-Sign Provider: Resuscitation Status: FULL: Full Resuscitation Discussed with: pt - Labs Lab Results: 02/07/20 05:28 02/07/20 05:28 Abnormal Lab Results - Last 48 hrs 02/06/20 05:05: AST 35 H, Albumin 3.0 L 02/06/20 16:22: C-Reactive Protein 3.46 H 02/07/20 05:28: C-Reactive Protein 3.13 H 02/07/20 05:28: WBC 17.8 H, RBC 4.53 L, Hgb 13.8 L, Hct 41.7 L, Plt Count 614 H, MPV 7.3 L, Band Neuts % (Manual) 4 L, Lymphocytes % (Manual) 16 L, Myelocytes % 6 H, Plt Morphology Comment Appears Increased H Microbiology - Entire Visit 02/03/20 18:41 Venous blood - Left Arm Blood Culture - Preliminary NO GROWTH AT 48 HOURS 02/03/20 18:41 Venous blood - Right Hand Blood Culture - Preliminary NO GROWTH AT 48 HOURS - Physical Exam Vitals: Vital Signs (12 hours) Temp Pulse Resp BP BP Pulse Ox 02/07/20 12:00 98.2 F 84 20 136/88 99 02/07/20 08:13 98.2 F 81 20 156/99 H 95 02/07/20 08:03 81 156/99 H 02/07/20 08:00 95 02/07/20 04:00 98.1 F 70 20 158/97 H 96 Weight Weight 180 lb 12.465 oz Physical Exam: The patient was seen and examined on the day of discharge. Patient denies chest pain or shortness of breath. Vital signs are stable. S1 and S2 are heard. Lungs are clear to auscultation bilaterally. Plan - Discharge Medications Prescriptions: Dexamethasone 6 mg PO DAILY #4 tablet Aspirin [Ecotrin Low Strength] 81 mg PO DAILY #7 tab Amlodipine [Norvasc] 10 mg PO DAILY #30 tab Ascorbic Acid [Vitamin C] 1,000 mg PO DAILY #7 tablet Zinc Sulfate [Zinc-220] 220 mg PO DAILY #7 capsule Home Medications: Medication Instructions Recorded Confirmed Type Amlodipine [Norvasc] 10 mg PO DAILY #30 tab 02/07/20 Rx Ascorbic Acid [Vitamin C] 1,000 mg PO DAILY #7 tablet 02/07/20 Rx Aspirin [Ecotrin Low Strength] 81 mg PO DAILY #7 tab 02/07/20 Rx Dexamethasone 6 mg PO DAILY #4 tablet 02/07/20 Rx Zinc Sulfate [Zinc-220] 220 mg PO DAILY #7 capsule 02/07/20 Rx Allergies: No Known Allergies Allergy (Unverified 02/01/20 02:20) - Discharge Instructions Discharge Instructions:: Check your blood pressure and heart rate 3 times a day and shows readings to you r primary care provider. - Follow up Plan Referrals: PROVIDER,NO PCP [Primary Care Provider] - 3 Days Disposition: HOME Quality - Care Measures CORE MEASURES:: N/A
== END 2020-02-07 14:59 | disposition home or self-care (01) | DRG 177 ==
LOC: ERS 20:01 → ERHOLD 23:56 → T4-B 02-01 14:28
PROVIDERS: ADMIT Internal Medicine; ATTEND Internal Medicine
PROC: 8E0ZXY6 Isolation (ICD-10-PCS; principal; 2020-01-31)
PROC: XW033E5 Introduction of Remdesivir Anti-infective into Peripheral Vein, Percutaneous Approach, New Technology Group 5 (ICD-10-PCS; 2020-02-02)
DX: U07.1 COVID-19 (principal); J96.01 Acute respiratory failure with hypoxia; J12.89 Other viral pneumonia; N17.9 Acute kidney failure, unspecified; R04.2 Hemoptysis; I10 Essential (primary) hypertension; Z87.891 Personal history of nicotine dependence
CPT/HCPCS: 36415; 71045; 71275; 80048; 80053; 80076; 82550; 82728; 83605; 83735; 83880; 84484; 85025; 85379; 86140; 87040; 93005; 94760; 96365; 96367; 96372; 96375; J0360; J0456; J0696; J1100; J1650; J3490; J7050; Q9967